=== PATIENT | female | born 1975 | race Caucasian/White ===

== ENCOUNTER 2016-06-19 23:53 | Emergency (ER) | payer SELFPAY ==
[~2016-06-19] VITALS: Ht 162.6 cm; Wt 77.1 kg
[2016-06-19 23:58] VITALS: BP 138/80
[2016-06-20] MEDS ORDERED: AMOX500C PO (00:12)
[2016-06-20] MEDS ORDERED: ACET-704 PO (00:12)
--- NOTE | 2016-06-20 00:12 | PHYS DOC ---
Past Medical History Past Medical History: No Pertinent History Past Surgical History: Tubal ligation Alcohol Use: None Drug Use: None Adult General Chief Complaint Chief Complaint: DENTAL PROBLEM [facility] HPI Patient is a 41 year old female presents to emergency department stating that she is having pain and discomfort to her left lower jaw. She states that it is been coming and going. He states that she now she is to follow up with a dentist although she doesn't have the money to go. She states that she is also checking at the clinic. Patient states that she's been having such pain and discomfort this morning that she is taken Aleve and tramadol. She states that she has taken a friend's tramadol without much relief. Patient denies fever, chills or any nausea vomiting. Review of Systems Review of Systems Constitutional: Denies fever or chills [] Eyes: Denies change in visual acuity, redness, or eye pain [] HENT: Denies nasal congestion or sore throat. C./o dental pain left lower jaw Respiratory: Denies cough or shortness of breath [] Cardiovascular: No additional information not addressed in HPI [] GI: Denies abdominal pain, nausea, vomiting, bloody stools or diarrhea [] : Denies dysuria or hematuria [] Musculoskeletal: Denies back pain or joint pain [] Integument: Denies rash or skin lesions [] Neurologic: Denies headache, focal weakness or sensory changes [] Allergies Allergies Allergies Coded Allergies Type Severity Reaction Last Updated Verified No Known Drug Allergies 06/20/16 No Physical Exam Physical Exam Constitutional: Well developed, well nourished, no acute distress, non-toxic appearance. [] HENT: Normocephalic, atraumatic, bilateral external ears normal, oropharynx moist, no oral exudates, nose normal. Bilateral tympanic membranes appear to be normal. Patient does have a broken off, decayed tooth in the left lower jaw area. Patient does have tenderness noted. No drainage or discharge noted around the tooth. Eyes: PERRLA, EOMI, conjunctiva normal, no discharge. [] Neck: Normal range of motion, no tenderness, supple, no stridor. [] Cardiovascular:Heart rate regular rhythm, no murmur [] Lungs & Thorax: Bilateral breath sounds clear to auscultation [] [] Skin: Warm, dry, no erythema, no rash. [] Back: No tenderness Extremities: No tenderness, no cyanosis, no clubbing, ROM intact, no edema. [] Neurologic: Alert and oriented X 3, normal motor function, normal sensory function, no focal deficits noted. [] Psychologic: Affect normal, judgement normal, mood normal. [] Current Patient Data Vital Signs Vital Signs Date Time Temp Pulse Resp B/P Pulse Ox O2 Delivery O2 Flow Rate FiO2 06/19/16 23:58 98.0 93 18 98 Room Air 98.0 EKG EKG [] Radiology/Procedures Radiology/Procedures [] Course & Med Decision Making Course & Med Decision Making Pertinent Labs and Imaging studies reviewed. (See chart for details) Patient will be encouraged to continue to use Tylenol or ibuprofen for pain and discomfort. She'll be provided with amoxicillin. She was instructed to use dental wax over the area to help with the pain and discomfort and follow-up with the dentist. Patient was provided with signs and symptoms to return back to emergency department. Recommended to continue to flossing brush teeth as normal. Patient agrees with discharge instructions treatment regimens and follow -up recommendations. [] Dragon Disclaimer Dragon Disclaimer This electronic medical record was generated, in whole or in part, using a voice recognition dictation system. Departure Departure Impression: Primary Impression: Pain due to dental caries Disposition: HOME, SELF-CARE Condition: STABLE Patient Instructions: Dental Pain, [id number] Additional Instructions: Activity as tolerated. You may purchase didn't wax [id number] to place over the tooth to help with pain and discomfort. Medication as prescribed. You will be provided with Tylenol No. 3 for severe pain and discomfort. Continue to flossing and pressure teeth. Use warm salt water mouth rinses 4 times a day. Follow-up with the dentist within the next week. Return back to emergency prior signs symptoms of become worse. Scripts Acetaminophen With Codeine (Tylenol With Codeine #3 Tablet)1 Each Tablet1 Tab PO PRN Q6HRS PRN PAIN #6 TAB Prov:GLORIA SOUTH [employer] CHEF 06/20/16 Amoxicillin 500 Mg Capsule1 Cap PO QID #40 CAP Prov:GLORIA SOUTH [employer] CHEF 06/20/16 GLORIA SOUTH APRN Jun 20, 2016 00:12
== END 2016-06-20 00:22 | disposition home or self-care (01) ==
LOC: ER 23:53
DX: K02.9 Dental caries, unspecified (principal); K08.89 Other specified disorders of teeth and supporting structures
CPT/HCPCS: 99283